=== PATIENT | female | born 1995 | race Caucasian/White ===

== ENCOUNTER 2017-03-24 17:24 | Emergency (ER) | payer BC ==
[2017-03-24 20:05] VITALS: BP 119/64
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
[2017-03-24] MEDS ORDERED: Sulfamethox/Trimethoprim DS 800/160* TAB PO ONE (20:49)
== END 2017-03-24 21:04 | disposition home or self-care (01) ==
LOC: UCCORT 17:24
DX: T21.05XA Burn of unspecified degree of buttock, initial encounter (principal); L03.317 Cellulitis of buttock; X19.XXXA Contact with other heat and hot substances, initial encounter; Y93.89 Activity, other specified; Y92.009 Unspecified place in unspecified non-institutional (private) residence as the place of occurrence of the external cause; Z88.0 Allergy status to penicillin
CPT/HCPCS: 99212; A9270-GY; G0463